=== PATIENT | male | born 1995 | race Two or more races ===

== ENCOUNTER 2022-06-04 15:08 | Emergency (ER) | payer SELFPAY ==
[~2022-06-04] VITALS: Ht 188 cm; Wt 81.8 kg
[2022-06-04 15:10] VITALS: BP 140/94
[2022-06-04] MEDS ORDERED: SODIUM CHLORIDE 0.9% 1,000 ML IV ONE (15:15)
[2022-06-05 00:27] LABS: Alcohol, Urine < 3.0 mg/dL (0-10)
[2022-06-05 00:54] LABS: Amphetamine Screen, Urine POSITIVE (NEGATIVE); Barbiturate Scree,Urine NEGATIVE (NEGATIVE); Benzodiazephine Screen, Urine NEGATIVE (NEGATIVE); Cannabinoid Screen, Urine POSITIVE (NEGATIVE); Cocaine Screen, Urine NEGATIVE (NEGATIVE); Opiate Scree,Urine NEGATIVE (NEGATIVE); Phencyclidine Screen, Urine NEGATIVE (NEGATIVE)
== END 2022-06-04 15:30 | disposition left against medical advice (07) ==
LOC: ER 15:08 → EDBD 15:08 → ER 15:30
DX: T40.411A Poisoning by fentanyl or fentanyl analogs, accidental (unintentional), initial encounter (principal); M79.642 Pain in left hand; F17.210 Nicotine dependence, cigarettes, uncomplicated; Y92.89 Other specified places as the place of occurrence of the external cause
CPT/HCPCS: 80307

== ENCOUNTER 2022-10-20 12:01 | Emergency (ER) | payer SELFPAY ==
[~2022-10-20] VITALS: Ht 188 cm; Wt 84.0 kg
[2022-10-20 12:15] VITALS: BP 148/90
[2022-10-20] MEDS ORDERED: SODIUM CHLORIDE 0.9% 1,000 ML IVB ONE (12:15)
[2022-10-20] MEDS ORDERED: NALOXONE HCL 1MG/ML 2ML SYRINGE IV ONE ×2 (12:15)
== END 2022-10-20 12:18 | disposition left against medical advice (07) ==
LOC: ER 12:01
DX: T40.411A Poisoning by fentanyl or fentanyl analogs, accidental (unintentional), initial encounter (principal); F17.210 Nicotine dependence, cigarettes, uncomplicated; Y92.89 Other specified places as the place of occurrence of the external cause